=== PATIENT | male | born 1975 | race Caucasian/White ===

== ENCOUNTER 2019-04-19 14:34 | Emergency (ER) | payer OTHER, SELFPAY ==
--- NOTE | ~2019-04-19 | XR_ITS ---
XR chest 2V 04/19/2019 15:22 Indication: Chest pain and dizziness Procedure: 2 view chest Comparison: Comparison to multiple prior studies sequentially, with oldest reviewed study dated 01/17. Findings: This post median sternotomy for CABG. Pacemaker leads are stable. Heart size normal. No foc al air space disease, pulmonary edema, pleural effusion or suspected pneumothorax. Impression: 1: No acute cardiopulmonary disease. Reviewed, dictated and finalized at location A. ICATION TECHNICIAN Impression: 1: No acute cardiopulmonary disease.
--- NOTE | ~2019-04-19 | CT_ITS ---
EXAMINATION: CT BRAIN W/O DATE: 04/19/2019 16:21 INDICATION: Sudden onset of dizziness TECHNIQUE: Computed tomography (CT) of the head was performed without intravenous contrast. The dose- length product was 681.00 mGy-cm. The mA was adjusted according to patient size. Iterative reconstruc tion technique was employed. COMPARISON: CT dated 05/15/2012 FINDINGS: Normal brain parenchymal volume for age. Normal mohamud-white differentiation. No acute intrac ranial hemorrhage, infarction, mass or mass effect. No ventriculomegaly or midline shift. Midline sagittal images demonstrate a normal corpus callosum, c raniovertebral junction and sella turcica. Basilar cisterns are patent. There is bilateral maxillary, ethmoidal and left frontal sinusitis with mucoperiosteal reaction, cons istent with chronic sinus disease. Mastoids are pneumatized. No depressed skull fractures. IMPRESSION: 1. No acute intracranial abnormality. 2: Chronic sinusitis. Reviewed, dictated and finalized at location A. CH PATHOLOGY TEACHER
[2019-04-19 14:40] VITALS: BP 140/87; PULSE 78; PULSE 82; RESP 18; TEMP 36.7; O2SAT 98
--- NOTE | 2019-04-19 15:09 | ECG_ITS ---
Measurements Intervals [place] Rate: 78 P: 43 MS: 156 QRS: 107 QRSD: 165 T: -1 QT: 421 QTc: 481 Interpretive Statements ATRIAL SENSE- ELECTRONIC VENTRICULAR PACEMAKER NO FURTHER INTERPRETATION IS POSSIBLE ATYPICAL ECG Electronically Signed On 04-20-2019 8:12:17 TANKAGE GRINDER by Oscar Moore D.O.
--- NOTE | 2019-04-19 15:12 | ED.CHESTPAIN ---
HPI - Chest Pain General Chief Complaint: Chest Pain Stated Complaint: DIZZY SOME CHEST PAIN Time Seen by Provider: 04/19/19 14:50 Source: patient Mode of arrival: ambulatory Limitations: no limitations History of Present Illness HPI narrative: Ajit is a 43-year-old male patient. He comes ambulatory to the emergency room. He states that just before coming to the ER, he was lying down. He turned to his side and became dizzy. The dizziness has persisted since then. He had some vague left chest discomfort at the same time but that has now subsided. He does not have any chest pain now. He still has the dizziness pain he denies headache diplopia blurred vision nausea or vomiting. He has no fever or cough. Ajit has a complicated medical history. 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 This was done at [facility] in [place]. In 2017 the mom aortic valve was redone with a pig valve again. At the same time he had some mitral valve surgery also. He also received a implantable automatic cardioverter-defibrillator pacer. His surgeon was Dr. Soliz. His disability insurance hearing officer is Dr. Viraj Hernandez Ajit saw the disability insurance hearing officer on April 02, 2019 in [place] . Ajit denies any abdominal pain. He has no nausea. He has no vomiting. There is no swelling of the legs. MD complaint: chest pain and other ( Dizziness) Pertinent past history: other ( valve disease. Hypertension. Hypercholesterolemia.) Onset (ago): hour(s) ( 30 minutes DOCUMENTATION LEAD) Timing of current episode: constant Prior episodes: No Onset: during rest Pain location: left chest Pain radiation: none Severity: moderate Quality: sharp Relieving factors: rest Exacerbating factors: nothing Context: other ( see HPI narrative) Associated symptoms: other ( see HPI narrative) Risk Factors Thoracic aortic dissection risk factors: none Related Data Home Medications Medication Instructions Recorded Confirmed aspirin 81 mg tablet,delayed 81 mg PO DAILY 04/04/19 04/19/19 release atorvastatin 40 mg tablet 40 mg PO DAILY 04/04/19 04/19/19 lisinopril 20 mg tablet 20 mg PO DAILY 04/04/19 04/19/19 Allergies Allergy/AdvReac Type Severity Reaction Status Date / Time No Known Allergies Allergy Verified 04/19/19 16:08 Review of Systems Review of Systems: All systems reviewed & are unremarkable except as noted in HPI and below Constitutional: Constitutional: Reports as per HPI, Reports no additional constitutional complaints, Denies chills and Denies fever(s) Eyes: Eyes: Reports as per HPI and Denies change in vision ENT: Reports system reviewed and no additional complaints, except as documented, Denies vertigo, Denies nasal congestion and Denies sore throat Cardiovascular: Cardiovascular: Reports as per HPI, Reports chest pain and Denies radiating jaw, neck or arm pain Respiratory: Respiratory: Reports as per HPI and Reports no additional respiratory complaints Gastrointestinal: Gastrointestinal: Reports no additional gastrointestinal complaints, Denies abdominal pain, Denies diarrhea, Denies nausea and Denies vomiting Genitourinary: Genitourinary: Reports no additional male genitourinary complaints, Denies hematuria and Denies dysuria Musculoskeletal: Musculoskeletal: Reports no additional musculoskeletal complaints, Denies back pain, Denies arthralgias and Denies joint swelling Integumentary/Breasts: Skin/Breast: Reports system reviewed and no additional complaints, except as docu, Denies erythema and Denies rash Neurologic: Denies vertigo, Reports dizziness, Denies syncope, Denies headache(s), Denies focal weakness, Denies numbness and Denies weakness Psychiatric: Psychiatric: Reports no additional psychiatric complaints and Reports anxiety Endocrine: Endocrine: Reports no additional endocrine complaints, Denies polydipsia and Denies polyuria [facility] Past Medical History Medical History (Updated 04/19/19 @ 16:47 by Matthew
[2019-04-19 15:47] LABS: Basophils Absolute Auto 0.02 K/mm3 (0.00-0.10); Basophils Percent Auto 0.2 % (0.0-1.0); Eosinophils Absolute Auto 0.08 K/mm3 (0.02-0.50); Eosinophils Percent Auto 0.8 % (1.0-6.0); Hematocrit 43.5 % (40.0-54.0); Hemoglobin 14.5 g/dL (14.0-18.0); Immature Granulocyte Absolute 0.03 K/mm3 (0.00-0.00); Immature Granulocyte Percent A 0.3 % (0.0-0.0); Lymphocytes Absolute Auto 2.19 K/mm3 (1.10-4.50); Lymphocytes Percent Auto 20.9 % (18.0-42.0); Mean Corpuscular HGB Conc 33.3 g/dL (32.0-36.0); Mean Corpuscular Hemoglobin 30.5 pg (27.0-31.0); Mean Corpuscular Volume 91.6 fL (78.0-102.0); Mean Platelet Volume 10.9 fl (8.7-11.0); Monocytes Absolute Auto 0.64 K/mm3 (0.10-0.90); Monocytes Percent Auto 6.1 % (2.0-11.0); Neutrophils Absolute Auto 7.5 K/mm3 (1.7-7.2); Neutrophils Percent Auto 71.7 % (50.0-70.0); Platelet Count Result 160 K/mm3 (150-420); Red Blood Count 4.75 M/mm3 (4.70-6.10); White Blood Count 10.5 K/mm3 (4.8-10.8)
[2019-04-19 15:55] LABS: Partial Thromboplastin Time 23.4 SEC (22.3-31.6); Prothrombin Time 10.7 Seconds (9.64-11.0)
[2019-04-19 15:59] LABS: D Dimer 0.41 mg/L (0.19-0.50)
[2019-04-19 16:01] LABS: BNP 13.3 pg/mL (0-100)
[2019-04-19 16:04] VITALS: BP 118/67; PULSE 77; RESP 18; O2SAT 96
[2019-04-19 16:16] LABS: Alanine Aminotransferase 39 U/L (16-63); Albumin Level 4.1 g/dL (3.4-5.0); Alkaline Phosphatase 93 U/L (46-116); Anion Gap 12.3 mmol/L (7-16); Aspartate Amino Transferase 27 U/L (15-37); Bilirubin,Total 0.4 mg/dL (0.00-1.00); Blood Urea Nitrogen 18 mg/dL (7-18); Calcium 9.1 mg/dL (8.5-10.1); Carbon Dioxide 30 mmol/L (21-32); Chloride 104 mmol/L (98-108); Estimated CRCL calculation 135 ml/min; Estimated Glomerular Filt Rate > 60; Glucose 116 mg/dL (70-99); Osmolality Calculated 296 mOsm/kg (285-295); Potassium 4.3 mmol/L (3.5-5.1); Sodium 142 mmol/L (136-145); Total Protein 7.4 g/dL (6.4-8.2)
[2019-04-19 16:31] LABS: Troponin I < 0.02 ng/mL (0.00-0.056)
[2019-04-19] MEDS: MECLIZINE HCL 25 MG TABLET PO (16:46)
[2019-04-19 16:47] VITALS: BP 125/77; PULSE 77; RESP 18; O2SAT 97
== END 2019-04-19 16:57 | disposition home or self-care (01) ==
PROVIDERS: Emergency Provider Surgery; PCP Nurse Practitioner Family
DX: R42 Dizziness and giddiness (principal)
CPT/HCPCS: 36415; 70450; 71046; 80053; 83880; 84484; 85025; 85380; 85610; 85730; 93005; 99283; 99284; A9270

== ENCOUNTER 2020-06-16 16:25 | Outpatient (CLI) | payer OTHER, SELFPAY ==
--- NOTE | 2020-06-16 16:30 | ECG_ITS ---
Measurements Intervals [place] Rate: 79 P: 65 NM: 160 QRS: 110 QRSD: 170 T: 86 QT: 416 QTc: 478 Interpretive Statements ATRIAL SENSE- ELECTRONIC VENTRICULAR PACEMAKER NO FURTHER INTERPRETATION IS POSSIBLE ATYPICAL ECG Electronically Signed On 06-16-2020 18:35:47 CDT by Oscar Moore D.O.
[2020-06-16 16:42] LABS: Hematocrit 48.6 % (40.0-54.0); Hemoglobin 16.3 g/dL (14.0-18.0); Mean Corpuscular HGB Conc 33.5 g/dL (32.0-36.0); Mean Corpuscular Hemoglobin 30.6 pg (27.0-31.0); Mean Corpuscular Volume 91.4 fL (78.0-102.0); Platelet Count Result 165 K/mm3 (150-420); Red Blood Count 5.32 M/mm3 (4.70-6.10); Red Cell Distribution Width 11.9 % (11.6-14.4)
[2020-06-16 16:59] LABS: Alanine Aminotransferase 34 U/L (16-63); Alkaline Phosphatase 82 U/L (46-116); Anion Gap 8 mmol/L (8-16); Aspartate Amino Transferase 19 U/L (15-37); Bilirubin,Total 0.9 mg/dL (0.00-1.00); Blood Urea Nitrogen 25 mg/dL (7-18); Calcium 9.2 mg/dL (8.5-10.1); Carbon Dioxide 30 mmol/L (21-32); Chloride 100 mmol/L (98-108); Estimated Glomerular Filt Rate > 60; Glucose 117 mg/dL (70-99); Osmolality Calculated 291 mOsm/kg (285-295); Potassium 3.8 mmol/L (3.5-5.1); Sodium 138 mmol/L (136-145); Total Protein 7.6 g/dL (6.4-8.2)
== END 2020-06-16 16:26 | disposition home or self-care (01) ==
LOC: CHSLAB 16:30
PROVIDERS: PCP Family Medicine; Visit Provider Family Medicine
DX: R00.2 Palpitations (principal); I10 Essential (primary) hypertension; R42 Dizziness and giddiness; R07.81 Pleurodynia
CPT/HCPCS: 36415; 80053; 85027; 93005